=== PATIENT | female | born 1985 | race African-American/Black ===

== ENCOUNTER 2018-11-10 09:16 | Day surgery (SDC) | payer MEDICAID ==
[~2018-11-10] VITALS: Ht 180.3 cm; Wt 77.1 kg
[2018-11-10 09:34] LABS: HCG,QUAL RESULT NEGATIVE (NEGATIVE)
[2018-11-10] MEDS ORDERED: ONDANSETRON HCL 4 MG/2 ML VIAL IVP PRN (10:30)
[2018-11-10] MEDS ORDERED: fentaNYL CITRATE/PF 100 MCG/2 ML AMP IVP PRN ×2 (10:30)
[2018-11-10] MEDS ORDERED: PROPOFOL 200MG/ 20ML VIAL (DIPRIVAN) IV ONE (11:56)
[2018-11-10] MEDS ORDERED: NEOSTIGMINE METHYLSULFATE 1 MG/ML, 10 ML VIAL IVP ONE (11:56)
[2018-11-10] MEDS ORDERED: SEVOFLURANE 15 MIN GAS INH ONE (11:56)
[2018-11-10] MEDS ORDERED: fentaNYL CITRATE/PF 100 MCG/2 ML AMP IVP ONE (11:56)
[2018-11-10] MEDS ORDERED: ONDANSETRON HCL 4 MG/2 ML VIAL IVP ONE (11:56)
[2018-11-10] MEDS ORDERED: LR 1,000 ML IV.SOLN IV ONE (11:56)
[2018-11-10] MEDS ORDERED: ROCURONIUM BROMIDE 10 MG/ML (ZEMURON) IV ONE ×2 (11:56)
[2018-11-10] MEDS ORDERED: DEXAMETHASONE SOD PHOSPHATE 4 MG/ML VIAL IVP ONE (11:56)
[2018-11-10] MEDS ORDERED: NS IRRIG SOLN 1000 ML IR ONE (11:56)
[2018-11-10] MEDS ORDERED: GLYCOPYRROLATE 0.2 MG/ML VIAL IJ ONE (11:56)
[2018-11-10 14:11] VITALS: BP_SYST 99
[2018-11-10] MEDS ORDERED: HYDROcodone/ACETAMIN 7.5-325 MG TAB PO ONE (16:15)
[2018-11-10] MEDS ORDERED: HYDROcodone/ACETAMIN 7.5-325 MG TAB ONE (16:26)
== END 2018-11-10 16:20 | disposition home or self-care (01) ==
LOC: SDS 09:16 → SMU 09:17 → SDS 16:20
PROVIDERS: ATTEND Otolaryngology
DX: J35.01 Chronic tonsillitis (principal); M54.5 Low back pain; D63.8 Anemia in other chronic diseases classified elsewhere; Z88.8 Allergy status to other drugs, medicaments and biological substances; J45.909 Unspecified asthma, uncomplicated
CPT/HCPCS: 42826; 84703; 88304; J7120; J1100; J2405; J2704; J2710; J3010; J3490

== ENCOUNTER 2018-11-12 21:34 | Emergency (ER) | payer MEDICAID ==
[~2018-11-12] VITALS: Ht 180.3 cm; Wt 77.1 kg
[2018-11-12 21:45] VITALS: BP_SYST 102
[2018-11-12] MEDS ORDERED: MORPHINE 4 MG/ML INJ. SYRINGE IM ONE (23:15)
[2018-11-13] MEDS ORDERED: MORPHINE 4 MG/ML INJ. SYRINGE IM ONE (00:30)
[2018-11-13 00:59] VITALS: BP_SYST 105
== END 2018-11-13 00:58 | disposition home or self-care (01) ==
LOC: SED 21:34
DX: J02.9 Acute pharyngitis, unspecified (principal); Z90.49 Acquired absence of other specified parts of digestive tract; Z91.018 Allergy to other foods
CPT/HCPCS: 96372; 99283; J2270 ×2

== ENCOUNTER 2018-11-15 17:50 | Emergency (ER) | payer MEDICAID ==
[~2018-11-15] VITALS: Ht 180.3 cm; Wt 77.1 kg
[2018-11-15 17:50] VITALS: BP_SYST 124
--- NOTE | 2018-11-15 17:50 | NUR ---
BROUGHT BACK TO BED #2 AND TRIAGED. REPORT GIVEN TO TINO
--- NOTE | 2018-11-15 18:10 | NUR ---
PATIENT CAME IN COMPLAINING OF PAIN 02/24 IN THROAT. PATIENT HAD TONSILECTOMY ON TUESDAY. PATIENT'S PAIN WAS SEVERE SO DR SAID TO DOUBLE UP ON [facility]. PATIENT CAME TO ER ON TUESDAY AND DR HALE GAVE PATIENT MORPHINE BUT PATIENT FINISHED. PATIENT HAS NOT BEEN EATING OR DRINKING MUCH. PATIENT SAYS SHE IS DIZZY AND NAUSES. MOTHER AT BEDSIDE SPEAKING FOR PATIENT. PATIENT AWAKE AND ALERT.
--- NOTE | 2018-11-15 18:14 | NUR ---
ER Dr. Montoya at bedside examining patient.
[2018-11-15] MEDS ORDERED: ONDANSETRON HCL 4 MG/2 ML VIAL IVP ONE (18:15)
[2018-11-15] MEDS ORDERED: LIDOCAINE VISCOUS 2%, 15 ML UDC MM ONE (18:15)
[2018-11-15] MEDS ORDERED: NACL 0.9% 1,000 ML IV ONE (18:15)
[2018-11-15] MEDS ORDERED: MORPHINE 4 MG/ML INJ. SYRINGE IVP ONE ×2 (18:45→20:45)
--- NOTE | 2018-11-15 19:15 | NUR ---
ENDORSED CARE TO NIGHT NURSE SOLEDAD
--- NOTE | 2018-11-15 20:31 | NUR ---
Pt states that pain is 01/24, ER MD Dr. Hendricks made aware.
[2018-11-15 21:10] VITALS: BP_SYST 124
--- NOTE | 2018-11-15 21:10 | NUR ---
Patient's guardian given written and verbal discharge instructions and verbalizes understanding. ER MD Dr. Hendricks discussed with patient's guardian the results and treatment provided. Patient in stable condition. ID arm band removed. IV catheter removed intact and dressing applied, no active bleeding. Rx of norco, lidocaine, narcan and zofran given. Patient's guardian educated on pain management, fever management, and to follow up with primary physician. Pain Scale/FLACC 7/10., tolerable for pt and pt has RX of pain medication. Opportunity for questions provided and answered.Medication side effect fact sheet provided.
--- NOTE | 2018-11-15 21:10 | NUR ---
Note undone in EDM - 11/16/18 at 0127 by [email or web address] Patient's guardian given written and verbal discharge instructions and verbalizes understanding. ER MD Dr. Hendricks discussed with patient's guardian the results and treatment provided. Patient in stable condition. ID arm band removed. IV catheter removed intact and dressing applied, no active bleeding. Rx of norco, lidocaine, narcan and zofran given. Patient's guardian educated on pain management, fever management, and to follow up with primary physician. Pain Scale/FLACC 0/10. Opportunity for questions provided and answered.Medication side effect fact sheet provided.
== END 2018-11-15 21:10 | disposition home or self-care (01) ==
LOC: SED 17:50
DX: G89.18 Other acute postprocedural pain (principal); R11.0 Nausea; R03.0 Elevated blood-pressure reading, without diagnosis of hypertension; J45.909 Unspecified asthma, uncomplicated; Z76.0 Encounter for issue of repeat prescription; Z90.49 Acquired absence of other specified parts of digestive tract; Z91.018 Allergy to other foods
CPT/HCPCS: 96361; 96374; 96376; 96375; 99283; J2001; J2270; J2405; J7030

== ENCOUNTER 2018-11-16 10:51 | Emergency (ER) | payer MEDICAID ==
[~2018-11-16] VITALS: Ht 180.3 cm; Wt 77.1 kg
[2018-11-16 10:58] VITALS: BP_SYST 104
--- NOTE | 2018-11-16 11:05 | NUR ---
Patient to ER bed 4 to gown for evaluation. Side rails up. Report given to Dov CONNELL.
--- NOTE | 2018-11-16 11:08 | NUR ---
ER Dr. Crouch at bedside examining patient.
[2018-11-16] MEDS ORDERED: fentaNYL CITRATE/PF 100 MCG/2 ML AMP IVP ONE (11:15)
[2018-11-16] MEDS ORDERED: NACL 0.9% 1,000 ML IV ONE (11:15)
[2018-11-16] MEDS ORDERED: ONDANSETRON HCL 4 MG/2 ML VIAL IVP ONE (11:15)
[2018-11-16 11:39] LABS: BASOPHILS % (AUTO) 0.7 % (0.0-2.0); EOSINOPHILS # (AUTO) 0.1 K/uL (0.0-0.4); EOSINOPHILS % (AUTO) 1.5 % (0.0-4.0); HEMATOCRIT 34.9 % (36-48); HEMOGLOBIN 11.4 g/dL (12.0-16.0); LYMPHOCYTES # (AUTO) 2.2 K/uL (1.0-5.5); LYMPHOCYTES % (AUTO) 33.9 % (20.5-51.5); MEAN CORPUSCULAR HEMOGLOBIN 30 pg (27-31); MEAN CORPUSCULAR HGB CONC 33 % (32-36); MEAN CORPUSCULAR VOLUME 91 fL (79.0-98.0); MONOCYTES # (AUTO) 0.7 K/uL (0.0-1.0); MONOCYTES % (AUTO) 9.9 % (1.7-9.3); NEUTROPHILS # (AUTO) 3.6 K/uL (1.8-7.7); PLATELET COUNT (AUTO) 323 K/uL (130-430); RED BLOOD CELL COUNT(AUTO) 3.81 MIL/uL (4.2-6.2); RED CELL DISTRIBUTION WIDTH 16.4 % (9.0-15.0); WHITE BLOOD COUNT (AUTO) 6.6 K/uL (4.8-10.8)
--- NOTE | 2018-11-16 11:42 | NUR ---
Pt medicated tolerated well.Continuing to montr.
[2018-11-16 11:47] LABS: CREATININE 0.82 mg/dL (0.55-1.30); POTASSIUM 3.5 mmol/L (3.5-5.1)
[2018-11-16 11:50] LABS: PROTHROMBIN TIME 10.4 SECS (9.5-12.5)
[2018-11-16 11:51] LABS: ALBUMIN 3.5 g/dL (3.4-4.8); TOTAL BILIRUBIN 0.7 mg/dL (0.0-1.0)
[2018-11-16 12:35] VITALS: BP_SYST 100
--- NOTE | 2018-11-16 12:35 | NUR ---
Patient given written and verbal discharge instructions and verbalizes understanding. ER MD discussed with patient the results and treatment provided. Patient in stable condition. ID arm band removed. IV catheter removed intact and dressing applied, no active bleeding. Zero Rx given. Patient educated on pain management and to follow up with PMD. Pain Scale 0/10. Opportunity for questions provided and answered. Medication side effect fact sheet provided.
== END 2018-11-16 12:35 | disposition home or self-care (01) ==
LOC: SED 10:51
DX: E86.0 Dehydration (principal); G89.18 Other acute postprocedural pain; R07.0 Pain in throat; J45.909 Unspecified asthma, uncomplicated; R03.0 Elevated blood-pressure reading, without diagnosis of hypertension; Z90.49 Acquired absence of other specified parts of digestive tract; Z91.018 Allergy to other foods
CPT/HCPCS: 36415; 80053; 81025; 82150; 83605; 83690; 84703; 85025; 85610; 85730; 96361; 96374; 96375; 99283; J2405; J3010; J7030